=== PATIENT | male | born 2005 | race Caucasian/White ===

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

== ENCOUNTER 2025-05-15 06:27 | Emergency (ER) | payer OTHER ==
[~2025-05-15] VITALS: Ht 180.3 cm; Wt 63.5 kg
[~2025-05-15 06:27] MED LIST changes: +AMOCLA875 PO; +Norco 5-325 Ta1 EACH PO
[2025-05-15 07:14] VITALS: BP 124/83
[2025-05-15] MEDS ORDERED: Ketorolac Tromethamine 30mg Vial IM ONE (07:40)
[2025-05-15] MEDS ORDERED: AMOCLA875 PO (09:17)
== END 2025-05-15 09:44 | disposition home or self-care (01) ==
LOC: ER 06:27
DX: Z02.89 Encounter for other administrative examinations (principal); S61.451A Open bite of right hand, initial encounter; W54.0XXA Bitten by dog, initial encounter
CPT/HCPCS: 73130; 96372; 99283-25; A9270; J1885